=== PATIENT | female | born 1950 | race Caucasian/White ===

== ENCOUNTER 2017-01-23 07:00 | Emergency (ER) | payer OTHER ==
[2017-01-23] MEDS ORDERED: Cyclobenzaprine 10 MG Tab PO ONE (09:00)
[2017-01-23] MEDS ORDERED: Acetaminophen/HYDROcodone 325-10 MG Tab PO ONE (09:00)
[2017-01-23 09:17] LABS: CHLORIDE,CL 98 mmol/L (98-107); SODIUM,NA 134 mmol/L (136-145)
--- NOTE | 2017-01-23 10:10 | EDM.PDOC ---
ED HPI GENERAL MEDICAL PROBLEM - General Chief Complaint: Lower Extremity Injury/Pain Stated Complaint: back and leg pain Time Seen by Provider: 01/23/17 08:38 Source of Information: Reports: Patient History Limitations: Reports: No Limitations - History of Present Illness INITIAL COMMENTS - FREE TEXT/NARRATIVE: Patient reports lower right buttock pain that travels down the right leg behind her upper leg and around to the front of the marcial to her toes. She has seen her chiropracter on two occasions this week and after the second visit was recommended to come here to rule out a blood clot. She is diabetic with an insulin pump. Glucose this AM is over 500. She denies any other complaints today. Onset Date: 01/17/17 Duration: Getting Worse, Intermittent Location: Reports: Lower Extremity, Right Quality: Reports: Sharp, Throbbing Severity: Moderate Improves with: Reports: None Worsens with: Reports: None Associated Symptoms: Reports: No Other Symptoms Right Hip Pain Score (Numeric/FACES): 9 - Related Data Allergies Allergy/AdvReac Type Severity Reaction Status Date / Time propoxyphene [From Darvon] Allergy Nausea and Verified 01/23/17 07:29 Vomiting Home Meds: Home Meds Lisinopril 10 mg PO BID 01/23/17 [History] Past Medical History Cardiovascular History: Reports: Hypertension Endocrine/Metabolic History: Reports: Diabetes, Type II Social & Family History - Tobacco Use Smoking Status *Q: Unknown Ever Smoked Review of Systems - Review of Systems Review Of Systems: See Below Constitutional: Reports: No Symptoms Eyes: Reports: No Symptoms Ears: Reports: No Symptoms Nose: Reports: No Symptoms Mouth/Throat: Reports: No Symptoms Respiratory: Reports: No Symptoms Cardiovascular: Reports: No Symptoms GI/Abdominal: Reports: No Symptoms Genitourinary: Reports: No Symptoms Musculoskeletal: Reports: Leg Pain Skin: Reports: No Symptoms Neurological: Reports: Numbness, Tingling (numbness and tingling down right leg) Psychiatric: Reports: No Symptoms ED EXAM, GENERAL - Physical Exam Exam: See Below Exam Limited By: No Limitations General Appearance: Alert, WD/WN, No Apparent Distress Eye Exam: Bilateral Eye: EOMI, PERRL Head: Atraumatic, Normocephalic Neck: Normal Inspection, Supple, Non-Tender, Full Range of Motion Respiratory/Chest: No Respiratory Distress, Lungs Clear, Normal Breath Sounds, No Accessory Muscle Use, Chest Non-Tender Cardiovascular: Normal Peripheral Pulses, Regular Rate, Rhythm, No Edema, No Gallop, Systolic Murmur Peripheral Pulses: 2+: Posterior Tibial (L), Posterior Tibial (R), Dorsalis Pedis (L), Dorsalis Pedis (R) GI/Abdominal: Normal Bowel Sounds, Soft, Non-Tender, No Organomegaly Back Exam: Normal Inspection, Decreased Range of Motion, Other (straight leg weakness and pain on raisin) Extremities: Normal Inspection, Non-Tender, No Pedal Edema, Normal Capillary Refill, Limited Range of Motion Neurological: Alert, Oriented, CN II-XII Intact, Normal Cognition, Normal Gait, Normal Reflexes, No Motor/Sensory Deficits Psychiatric: Normal Affect, Normal Mood Skin Exam: Warm, Dry, Intact, Normal Color Lymphatic: No Adenopathy Course - Vital Signs Last Recorded V/S: Last Vital Signs Temp 35.9 C 01/23/17 07:10 Pulse 75 01/23/17 07:10 Resp 16 01/23/17 07:10 BP 161/66 H 01/23/17 09:30 Pulse Ox 97 01/23/17 07:10 - Orders/Labs/Meds Orders: Active Orders 24 hr Category Date Time Status Lumbar Spine Comp wo Cont [MR] Stat Exams 01/23/17 09:30 Ordered Labs: Laboratory Tests 01/23/17 01/23/17 01/23/17 Range/Units 08:52 08:52 08:52 WBC 12.9 H (4.0-10.0) x10^3/uL RBC 3.99 L (4.00-5.50) x10^6/uL Hgb 12.1 (12.0-16.0) g/dL Hct 35.3 (33.0-47.0) % MCV 88.5 (78.0-93.0) fL MCH 30.3 (26.0-32.0) pg MCHC 34.3 (32.0-36.0) g/dL RDW Coeff of Katharina 12.6 (10.0-15.0) % Plt Count 309 (130-400) x10^3/uL Neut % (Auto) 88.8 H (50.0-80.0) % Lymph % (Auto) 9.1 L (25.0-50.0) % [place] % (Auto) 1.9 L (2.0-11.0) % Eos % (Auto) 0.0 (0.0-4.0) % Baso % (Auto) 0.2 (0.2-1.2) % D-Dimer, Quantitative 0.28 (<=0.58) mg/LFEU Sodium 134 L (136-145) mmol/L Potassium 4.5 (3.5-5.1) mmol/L Chloride 98 (98-107) mmol/L Carbon Dioxide 24 (21-32) mmol/L BUN 28 H (7-18) mg/dL Creatinine 1.0 (0.55-1.02) mg/dL Est Cr Clr Drug Dosing TNP Estimated GFR (MDRD) 55 Glucose 517 H* (74-106) mg/dL Calcium 8.8 (8.5-10.1) mg/dL Corrected Calcium 8.88 (8.5-10.1) mg/dL Total Bilirubin 0.5 (0.2-1.0) mg/dL AST 23 (15-37) U/L ALT 38 (14-59) U/L Alkaline Phosphatase 69 (46-116) U/L C-Reactive Protein 1.5 H (<=0.9) mg/dL Total Protein 7.9 (6.4-8.2) g/dL Albumin 3.9 (3.4-5.0) g/dL Globulin 4.0 Albumin/Globulin Ratio 0.98 Meds: Medications Discontinued Medications Generic Name Dose Route Start Last Admin Trade Name Freq PRN Reason Stop Dose Admin Hydrocodone Bitart/Acetaminophen 1 tab 01/23/17 09:00 01/23/17 09:18 Martin 325-10 Mg PO 01/23/17 09:01 1 tab ONETIME ONE Administration Cyclobenzaprine HCl 10 mg 01/23/17 09:00 01/23/17 09:18 Flexeril PO 01/23/17 09:01 10 mg ONETIME ONE Administration Departure - Departure Time of Disposition: 10:29 Disposition: Home, Self-Care 01 Condition: Good Clinical Impression: Right-sided low back pain with sciatica Qualifiers: Chronicity: chronic Sciatica laterality: sciatica of right side Qualified Code( s): M54.41 - Lumbago with sciatica, right side - Discharge Information Instructions: Sciatica, [id number], Herniated Disk, [id number] Referrals: PCP,None [Primary Care Provider] - Forms: ED Department Discharge Additional Instructions: You do not have a blood clot. This is most likely irritation of the nerve in your back, the MRI results will be sent to Madyson Gonzalez at [facility] for follow up. You should follow up with her regarding your blood sugar levels as well. Please take the prescriptions I have given you as directed. Flexeril and Martin. Do not drive while taking these medications. If you have any questions or concerns, please call us at any time. - Problem List & Annotations (1) Right-sided low back pain with sciatica SNOMED Code(s): 353350502 Code(s): M54.41 - LUMBAGO WITH SCIATICA, RIGHT SIDE Status: Acute Priority: Low Current Visit: Yes Qualifiers: Chronicity: chronic Sciatica laterality: sciatica of right side Qualified Code(s): M54.41 - Lumbago with sciatica, right side; G89.29 - Other chronic pain - Problem List Review Problem List Initiated/Reviewed/Updated: Yes - My Orders Last 24 Hours: My Active Orders 01/23/17 09:30 Lumbar Spine Comp wo Cont [MR] Stat - Assessment/Plan Last 24 Hours: My Active Orders 01/23/17 09:30 Lumbar Spine Comp wo Cont [MR] Stat Assessment:: right sided sciatica Plan: You do not have a blood clot. This is most likely irritation of the nerve in your back, the MRI results will be sent to Madyson Gonzalez at [facility] for follow up. You should follow up with her regarding your blood sugar levels as well. Please take the prescriptions I have given you as directed. Flexeril and Martin. Do not drive while taking these medications. If you have any questions or concerns, please call us at any time.
== END 2017-01-23 10:46 | disposition home or self-care (01) ==
LOC: VM.ED 07:00
DX: M54.41 Lumbago with sciatica, right side (principal); I10 Essential (primary) hypertension; E11.9 Type 2 diabetes mellitus without complications; Z88.8 Allergy status to other drugs, medicaments and biological substances
CPT/HCPCS: 36415; 72148; 80053; 85025; 85379; 86140; 99284; A9270

== ENCOUNTER 2019-12-13 22:24 | Emergency (ER) | payer MEDICARE, OTHER ==
[2019-12-13] MEDS ORDERED: HYDROmorphone 1 MG/ML Syringe SUBCUT ONE (22:53)
[2019-12-13] MEDS ORDERED: Take Home: Acetaminophen/HYDROcodone 325-5 MG, 5 Tab Pack PO ONE (23:55)
--- NOTE | 2019-12-14 02:28 | EDM.PDOC ---
ED HPI GENERAL MEDICAL PROBLEM - General Chief Complaint: Back Pain or Injury Stated Complaint: BACK PAIN Time Seen by Provider: 12/13/19 22:24 Source of Information: Reports: Patient History Limitations: Reports: No Limitations - History of Present Illness INITIAL COMMENTS - FREE TEXT/NARRATIVE: Pt. presents to ER with complaints of L sided mid back pain. Pt. has had issues with intermittent pain in the area for years. She thinks that she may have exacerbated this chronic problem. Pt. states that the discomfort is worse with movement and palpation. She states that it is exactly like it has been in the past. States that the discomfort is located on the L side. She states that she took an extra gabapentin and tylenol today which she states usually helps but didn't tonight. Onset: Today Onset Date: 12/13/19 Location: Reports: Back Quality: Reports: Ache, Throbbing Severity: Severe Back Pain Score (Numeric/FACES): 10 - Related Data Allergies Allergy/AdvReac Type Severity Reaction Status Date / Time propoxyphene [From Darvon] Allergy Nausea and Verified 12/13/19 22:28 Vomiting Home Meds: Home Meds Lisinopril 10 mg PO BID 01/23/17 [History] Past Medical History Cardiovascular History: Reports: Hypertension Endocrine/Metabolic History: Reports: Diabetes, Type II Social & Family History - Tobacco Use Smoking Status *Q: Never Smoker - Alcohol Use Days Per Week of Alcohol Use: 1 Number of Drinks Per Day: 1 Total Drinks Per Week: 1 - Recreational Drug Use Recreational Drug Use: No ED ROS GENERAL - Review of Systems Review Of Systems: See Below Constitutional: Reports: No Symptoms HEENT: Reports: No Symptoms Respiratory: Reports: No Symptoms Cardiovascular: Reports: No Symptoms Endocrine: Reports: No Symptoms GI/Abdominal: Reports: No Symptoms : Reports: No Symptoms. Denies: Discharge, Dysuria, Frequency, Hematuria, Incontinence, Pain, Urinary Retention Musculoskeletal: Reports: Back Pain Skin: Reports: No Symptoms Neurological: Reports: No Symptoms Psychiatric: Reports: No Symptoms Hematologic/Lymphatic: Reports: No Symptoms Immunologic: Reports: No Symptoms ED EXAM, GENERAL - Physical Exam Exam: See Below Exam Limited By: No Limitations General Appearance: Alert, WD/WN, No Apparent Distress (Female) Exam: Deferred Rectal (Female) Exam: Deferred Back Exam: Normal Inspection, Decreased Range of Motion, Muscle Spasm (L lateral back pain, worse with palpation, lateral bend to the R, flexion, and extension. Some muscle spasm noted. ) Extremities: Normal Inspection, Normal Range of Motion, Non-Tender, No Pedal Edema, Normal Capillary Refill Neurological: Alert, Oriented, CN II-XII Intact, Normal Cognition Psychiatric: Anxious, Tearful Skin Exam: Warm, Dry, Intact, Normal Color, No Rash Course - Vital Signs Last Recorded V/S: Last Vital Signs Temp 37.0 C 12/13/19 22:26 Pulse 73 12/13/19 23:49 Resp 18 12/13/19 23:49 BP 179/71 H 12/13/19 23:49 Pulse Ox 95 12/13/19 23:49 - Orders/Labs/Meds Meds: Medications Discontinued Medications Generic Name Dose Route Start Last Admin Trade Name Alba PRN Reason Stop Dose Admin Hydrocodone Bitart/Acetaminophen 1 packet 12/13/19 23:55 12/13/19 23:59 Take Home: Acetam/Hydrocodon 325-5 Mg, 5 Pack PO 12/13/19 23:56 1 packet ONETIME ONE Administration Hydromorphone HCl 1 mg 12/13/19 22:53 12/13/19 23:00 Dilaudid SUBCUT 12/13/19 22:54 1 mg ONETIME ONE Administration - Re-Assessments/Exams Free Text/Narrative Re-Assessment/Exam: Pt. was extremely anxious and tearful on arrival to ER. BP initially was greater than 200 systolic. She was given 1 mg dilaudid SQ and observed. She reported near complete resolution in her discomfort. BP was in the 160-170 range on discharge. Her chart was reviewed. Her systolic BP has been in the 160 range in the recent past in clinic. She denies any chest pain, shortness of breath, headache or other worrisome signs or symptoms. Will hold off on changing her medications, as it appears a great deal of her problem tonight was pain related. Departure - Departure Time of Disposition: 00:02 Disposition: Home, Self-Care 01 Clinical Impression: Back spasm - Discharge Information Instructions: Acetaminophen; Hydrocodone tablets or capsules, Hypertension, Adult, [id number], Chronic Back Pain, [id number] Referrals: PCP,None [Primary Care Provider] - Forms: ED Department Discharge Additional Instructions: Byron 5/325mg 1 every 4-6 hours as needed for pain Do not take any other tylenol with this Recheck in clinic regarding your blood pressure and pain Sepsis Event Note - Evaluation Sepsis Screening Result: No Definite Risk - Focused Exam Vital Signs: Vital Signs Temp Pulse Resp BP Pulse Ox 12/13/19 23:49 73 18 179/71 H 95 12/13/19 23:28 70 173/62 H 92 L 12/13/19 23:04 71 18 187/63 H 98 12/13/19 22:26 37.0 C 74 16 200/73 H 97 Date Exam was Performed: 12/14/19 Time Exam was Performed: 02:23 - Assessment/Plan Plan: Byron 5/325mg 1 every 4-6 hours as needed for pain Do not take any other tylenol with this Recheck in clinic regarding your blood pressure and pain
== END 2019-12-14 00:02 | disposition home or self-care (01) ==
LOC: VM.ED 22:24
DX: M62.830 Muscle spasm of back (principal); I10 Essential (primary) hypertension; E11.9 Type 2 diabetes mellitus without complications; Z88.8 Allergy status to other drugs, medicaments and biological substances
CPT/HCPCS: 96372; 99283; A9270; J1170

== ENCOUNTER 2020-04-30 14:05 | Emergency (ER) | payer OTHER ==
--- NOTE | 2020-04-30 14:40 | EDM.PDOC ---
ED HPI GENERAL MEDICAL PROBLEM - General Chief Complaint: Diabetic Complaint Stated Complaint: DIABETIC Time Seen by Provider: 04/30/20 14:07 Source of Information: Reports: Patient, RN, RN Notes Reviewed History Limitations: Reports: No Limitations, Altered Mental Status (Patient states her head feels very "fuzzy") - History of Present Illness INITIAL COMMENTS - FREE TEXT/NARRATIVE: Patient presents to ER per [facility] ambulance service with complaint of high blood sugar. Patient states she was watching TV last night and fell asleep. States she woke up about 3:57 AM and states she felt as though her blood sugar was low. She states she got up to go to the fridge and took something out of the fridge but then became unresponsive again. States she woke up sometime later on the floor and there were chairs tipped over on the floor with her as well. Patient states she vomited 4 times. She did call her friend to come to her house who arrived at her house at 11 AM. Patient states she was unable to get a blood sugar until her friend got there and it was 475 at that time. Patient does have an insulin pump, but states she is not sure it is infusing properly. Patient states the pump is asking for calibration. Patient states history of vertigo, hypertension, diabetes. Patient denies any pain, headache. Onset: Today - Related Data Allergies Allergy/AdvReac Type Severity Reaction Status Date / Time propoxyphene [From Darvon] Allergy Nausea and Verified 12/13/19 22:28 Vomiting jennifer Allergy Sneezing Verified 04/30/20 14:15 chalk Allergy Rash Uncoded 04/30/20 14:15 Home Meds: Home Meds Lisinopril 10 mg PO DAILY 01/23/17 [History] Meclizine HCl 12.5 mg PO DAILY 04/30/20 [History] hydroCHLOROthiazide [Hydrochlorothiazide] 25 mg PO DAILY 04/30/20 [History] Past Medical History Cardiovascular History: Reports: Hypertension Neurological History: Reports: Vertigo Endocrine/Metabolic History: Reports: Diabetes, Type II Type of Insulin Used in Pump: novolog When was Your Last Insulin Site/Set Changed: 04/30/20 Who Manages Your Pump: Patient (Self) - Infectious Disease History Infectious Disease History: Reports: None Social & Family History - Family History Family Medical History: Noncontributory - Tobacco Use Smoking Status *Q: Never Smoker - Recreational Drug Use Recreational Drug Use: No ED ROS GENERAL - Review of Systems Review Of Systems: Comprehensive ROS is negative, except as noted in HPI. ED EXAM GENERAL NO PERIP PULSE - Physical Exam Exam: See Below Exam Limited By: No Limitations General Appearance: Alert, WD/WN, No Apparent Distress Eye Exam: Bilateral Eye: EOMI, Normal Inspection Ears: Normal External Exam, Hearing Grossly Normal Nose: Normal Inspection Throat/Mouth: Normal Inspection, Normal Lips, Normal Teeth, Normal Gums, Normal Oropharynx, Normal Voice, No Airway Compromise Head: Atraumatic, Normocephalic Neck: Normal Inspection, Supple, Non-Tender, Full Range of Motion Respiratory/Chest: No Respiratory Distress, Lungs Clear, Normal Breath Sounds, No Accessory Muscle Use, Chest Non-Tender Cardiovascular: Normal Peripheral Pulses, Regular Rate, Rhythm, No Edema, No Gallop, No JVD, No Murmur, No Rub GI/Abdominal: Normal Bowel Sounds, Soft, Non-Tender, Other (insulin pump) (Female) Exam: Deferred Rectal (Female) Exam: Deferred Back Exam: Normal Inspection, Full Range of Motion, NT Extremities: Normal Inspection, Normal Range of Motion, Non-Tender, Normal Capillary Refill, No Pedal Edema Neurological: Alert, Oriented, CN II-XII Intact, Normal Cognition, Normal Gait, Normal Reflexes, No Motor/Sensory Deficits, Memory Loss Recent Events Psychiatric: Normal Affect, Normal Mood Skin Exam: Warm, Dry, Intact, Normal Color, No Rash Lymphatic: No Adenopathy Course - Vital Signs Last Recorded V/S: Last Vital Signs Temp 97.5 F 04/30/20 14:19 Pulse 98 04/30/20 14:43 Resp 16 04/30/20 14:19 BP 172/71 H 04/30/20 14:43 Pulse Ox 97 04/30/20 14:19 - Orders/Labs/Meds Orders: Active Orders 24 hr Category Date Time Status EKG Documentation Completion [RC] STAT Care 04/30/20 14:25 Active Serum Ketones [B-HYDROXYBUTYRATE] [REF] Stat Lab 04/30/20 14:16 Received Labs: Laboratory Tests 04/30/20 04/30/20 04/30/20 Range/Units 14:07 14:16 14:16 WBC 16.4 H (4.0-10.0) x10^3/uL RBC 4.47 (4.00-5.50) x10^6/uL Hgb 13.4 (12.0-16.0) g/dL Hct 39.9 (33.0-47.0) % MCV 89.3 (78.0-93.0) fL MCH 30.0 (26.0-32.0) pg MCHC 33.6 (32.0-36.0) g/dL RDW Coeff of Katharina 11.9 (10.0-15.0) % Plt Count 275 (130-400) x10^3/uL Neut % (Auto) 92.1 H (50.0-80.0) % Lymph % (Auto) 4.5 L (25.0-50.0) % Gilmer % (Auto) 2.9 (2.0-11.0) % Eos % (Auto) 0.1 (0.0-4.0) % Baso % (Auto) 0.4 (0.2-1.2) % Sodium 129 L* (136-145) mmol/L Potassium 4.7 (3.5-5.1) mmol/L Chloride 95 L (98-107) mmol/L Carbon Dioxide 20 L (21-32) mmol/L Anion Gap 18.7 (10-20) mmol/L BUN 25 H (7-18) mg/dL Creatinine 1.2 H (0.55-1.02) mg/dL Est Cr Clr Drug Dosing 34.01 mL/min Estimated GFR (MDRD) 44 Glucose 453 H* (74-106) mg/dL POC Glucose 428 H* (74-106) mg/dL Calcium 9.3 (8.5-10.1) mg/dL Corrected Calcium 9.54 (8.5-10.1) mg/dL Total Bilirubin 0.5 (0.2-1.0) mg/dL AST 26 (15-37) U/L ALT 24 (14-59) U/L Alkaline Phosphatase 65 (46-116) U/L Troponin I 1.553 H* (<=0.056) ng/mL Total Protein 7.9 (6.4-8.2) g/dL Albumin 3.7 (3.4-5.0) g/dL Globulin 4.2 Albumin/Globulin Ratio 0.88 Ethyl Alcohol (0-3) mg/dL 04/30/20 04/30/20 Range/Units 14:16 15:25 WBC (4.0-10.0) x10^3/uL RBC (4.00-5.50) x10^6/uL Hgb (12.0-16.0) g/dL Hct (33.0-47.0) % MCV (78.0-93.0) fL MCH (26.0-32.0) pg MCHC (32.0-36.0) g/dL RDW Coeff of Katharina (10.0-15.0) % Plt Count (130-400) x10^3/uL Neut % (Auto) (50.0-80.0) % Lymph % (Auto) (25.0-50.0) % Gilmer % (Auto) (2.0-11.0) % Eos % (Auto) (0.0-4.0) % Baso % (Auto) (0.2-1.2) % Sodium (136-145) mmol/L Potassium (3.5-5.1) mmol/L Chloride (98-107) mmol/L Carbon Dioxide (21-32) mmol/L Anion Gap (10-20) mmol/L BUN (7-18) mg/dL Creatinine (0.55-1.02) mg/dL Est Cr Clr Drug Dosing mL/min Estimated GFR (MDRD) Glucose (74-106) mg/dL POC Glucose 429 H* (74-106) mg/dL Calcium (8.5-10.1) mg/dL Corrected Calcium (8.5-10.1) mg/dL Total Bilirubin (0.2-1.0) mg/dL AST (15-37) U/L ALT (14-59) U/L Alkaline Phosphatase (46-116) U/L Troponin I (<=0.056) ng/mL Total Protein (6.4-8.2) g/dL Albumin (3.4-5.0) g/dL Globulin Albumin/Globulin Ratio Ethyl Alcohol < 3 (0-3) mg/dL Meds: Medications Discontinued Medications Generic Name Dose Route Start Last Admin Trade Name Freq PRN Reason Stop Dose Admin Sodium Chloride 1,000 mls @ 999 mls/hr 04/30/20 15:46 04/30/20 15:58 Normal Saline IV 04/30/20 16:46 999 mls/hr ONETIME ONE Administration - Radiology Interpretation Free Text/Narrative:: Chest xray: No acute cardiopulmonary abnormality Head CT wo contrast: Mild generalized atrophy. A wedge-shaped area of hypodensity in the inferior aspect of the right cerebral hemisphere likely represents an acute to subacute infarct. No hemorrhagic transformation or other complication is identified. No acute hemorrhage, mass-effect, midline shift, or hydrocephalus. A limited look at the orbits and paranasal sinuses are unremarkable. See rad report - Re-Assessments/Exams Free Text/Narrative Re-Assessment/Exam: 04/30/20 17:43 Discussed patient case with Dr. Donahue, Stroke Neurology at [facility], as well as Dr. Soriano, hospitalist, who agreed to accept the patient for transfer to [place] in [place]. Departure - Departure Time of Disposition: 17:34 Disposition: DC/Tfer to Acute Hospital 02 Condition: Fair, Serious Clinical Impression: NSTEMI (non-ST elevated myocardial infarction), Acute cerebral infarction Hyperglycemia due to type 2 diabetes mellitus Qualifiers: Diabetes mellitus halfway insulin use: with termite control technician use Qualified Code(s): E11.65 - Type 2 diabetes mellitus with hyperglycemia - Discharge Information *PRESCRIPTION DRUG MONITORING PROGRAM REVIEWED*: No *COPY OF PRESCRIPTION DRUG MONITORING REPORT IN PATIENT JARRED: No Referrals: PCP,Not In Area [Primary Care Provider] - Forms: ED Department Discharge, Interfacility Transfer JOANNA Sepsis Event Note (ED) - Evaluation Sepsis Screening Result: No Definite Risk - Focused Exam Vital Signs: Vital Signs Temp Pulse Resp BP Pulse Ox 04/30/20 14:43 98 172/71 H 04/30/20 14:19 97.5 F 102 H 16 175/70 H 97 - My Orders Last 24 Hours: My Active Orders 04/30/20 14:16 Serum Ketones [B-HYDROXYBUTYRATE] [REF] Stat 04/30/20 14:25 EKG Documentation Completion [RC] STAT - Assessment/Plan Last 24 Hours: My Active Orders 04/30/20 14:16 Serum Ketones [B-HYDROXYBUTYRATE] [REF] Stat 04/30/20 14:25 EKG Documentation Completion [RC] STAT
[2020-04-30 15:17] LABS: ANION GAP 18.7 mmol/L (10-20)
[2020-04-30] MEDS: Sodium Chloride 0.9% 1,000 ML IV ONE (15:58)
--- NOTE | 2020-04-30 16:12 | CT ---
[id number] CT/CT Head WO IV EXAM: NONCONTRAST HEAD CT INDICATION: ALTERED LOSS OF CONSCIOUSNESS. COMPARISON: None. DISCUSSION: Left posterior scalp soft tissue swelling. There is mild generalized atrophy. A wedge-shaped area of hypodensity in the inferior aspect of the right cerebral hemisphere likely represents an acute to subacute infarct. No hemorrhagic transformation or other complication is identified. No acute hemorrhage, mass effect, midline shift or hydrocephalus. A limited look at the orbits and paranasal sinuses is unremarkable. IMPRESSION: 1. Acute to subacute right PICA infarct. Jorge Valera MD 04/30/20 [id number] Thank you for allowing us to participate in the care of your patient.
--- NOTE | 2020-04-30 16:13 | CR ---
[id number] RAD/RAD Chest PA And Lateral EXAM: RAD Chest PA And Lateral INDICATION: VOMITED WHILE UNCONSCIOUS. COMPARISON: None available. DISCUSSION: Cardiomediastinal silhouette is normal in size and contour. No infiltrate, effusion, pneumothorax, or edema. No evidence of aspiration. IMPRESSION: No acute cardiopulmonary abnormality. Luis Markham DO 04/30/20 [id number] Thank you for allowing us to participate in the care of your patient.
== END 2020-04-30 18:20 | disposition short-term general hospital (02) ==
LOC: VM.ED 14:05
DX: I63.9 Cerebral infarction, unspecified (principal); I21.4 Non-ST elevation (NSTEMI) myocardial infarction; E11.65 Type 2 diabetes mellitus with hyperglycemia; I10 Essential (primary) hypertension; Z79.4 Long term (current) use of insulin; Z88.8 Allergy status to other drugs, medicaments and biological substances; Z91.09 Other allergy status, other than to drugs and biological substances; Z79.899 Other long term (current) drug therapy
CPT/HCPCS: 36415; 70450; 71046; 80053; 80307; 82010; 82962; 84484; 85025; 93005; 99284; 99285-25; J7030

== ENCOUNTER 2024-10-25 23:48 | Emergency (ER) | payer MEDICARE, OTHER ==
[2024-10-26 00:27] LABS: BLOOD UREA NITROGEN,BUN 37 mg/dL (7-18); CALCIUM 8.8 mg/dL (8.5-10.1); CARBON DIOXIDE,CO2 24 mmol/L (21-32); CHLORIDE,CL 100 mmol/L (98-107); CREATININE 1.3 mg/dL (0.55-1.02); GLUCOSE RANDOM 314 mg/dL (70-99); SODIUM,NA 135 mmol/L (136-145)
[2024-10-26 00:29] LABS: ESTIMATED GFR 43 mL/min (>=60)
[2024-10-26] MEDS: Ketorolac 15 MG/ML SDV IVPUSH ONE (00:47)
== END 2024-10-26 02:03 | disposition home or self-care (01) ==
LOC: VM.ED 23:48
DX: M54.42 Lumbago with sciatica, left side (principal); I10 Essential (primary) hypertension; E11.9 Type 2 diabetes mellitus without complications; Z88.8 Allergy status to other drugs, medicaments and biological substances; Z79.899 Other long term (current) drug therapy
CPT/HCPCS: 36415; 72131; 80048; 96374; 99284; 99284-25; J1885